=== PATIENT | male | born 1995 | race Caucasian/White ===

== ENCOUNTER 2019-06-23 17:32 | Emergency (ER) | payer OTHER ==
[2019-06-23] MEDS ORDERED: DIPHTH,PERTUSS(ACELL),TET 0.5 ML DISP.SYRIN IM ONE ×2 (17:36→17:46)
--- NOTE | 2019-06-23 17:36 | PDOC ---
Rapid Medical Evaluation Time Seen by Provider: 06/23/19 17:34 Medical Evaluation: 06/23/19 17:34 This patient had a brief in-person evaluation in triage CC: laceration to left 3rd digit 30 minutes ago unknown tetanus status PE: NAD unlabored breathing bandage on 3rd left finger orders:tetanus ordered This patient will proceed to the ED for further evaluation Discharge Disposition - Diagnosis Laceration of finger - Referrals - Patient Instructions - Post Discharge Activity
[2019-06-23 18:18] VITALS: BP 117/67; PULSE 59; TEMP 98.4; BMI 27.3
--- NOTE | 2019-06-23 18:18 | PDOC ---
History of Present Illness - General Chief Complaint: Laceration Stated Complaint: CUT ON LT MIDDLE FINGER Time Seen by Provider: 06/23/19 17:34 History Source: Patient - History of Present Illness Timing/Duration: reports: this evening Location: reports: hands Past History - Past Medical History Allergies/Adverse Reactions: Allergies Allergy/AdvReac Type Severity Reaction Status Date / Time No Known Allergies Allergy Verified 06/23/19 17:37 COPD: No - Suicide/Smoking/Psychosocial Hx Smoking History: Never smoked Information on smoking cessation initiated: No Hx Alcohol Use: No Drug/Substance Use Hx: No Review of Systems - Review of Systems Neurological: No: Numbness, Tingling *Physical Exam - Vital Signs Last Vital Signs Temp Pulse Resp BP Pulse Ox 98.4 F 59 L 18 117/67 100 06/23/19 17:35 06/23/19 17:35 06/23/19 17:35 06/23/19 17:35 06/23/19 17:35 - Physical Exam General Appearance: Yes: Appropriately Dressed. No: Apparent Distress HEENT: positive: Normal Voice Neck: positive: Supple Respiratory/Chest: negative: Respiratory Distress Integumentary: positive: Other (~1cm, curved, superficial lac to fingerpad of L 3rd digit, FROMI, sensation intact) Neurologic: positive: Fully Oriented, Alert, Normal Mood/Affect Procedures - Laceration/Wound Repair Left Finger 3rd digit Wound Length: to 2.5 cm Wound Explored: clean Wound's Depth, Shape: superficial Irrigated w/ Saline: Yes Betadine Prep: Yes Anesthesia: 1% Lidocaine (s/p digitial block and local anesthetic) Amount of Anesthetic (ccs): 8 Wound Repaired With: Sutures Suture Size/Type: 5:0, nylon Number of Sutures: 6 Sterile Dressing Applied: Yes (bacitracic, xeroform, 2x2 and kerlix) Splint Applied: No Medical Decision Making - Medical Decision Making 06/23/19 18:24 23-year-old male, no significant history, 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 No numbness or tingling See exam Finger lac No e/o complication -Tetanus updated -Lac repair -wound check in 48 hrs as needed *DC/Admit/Observation/Transfer Diagnosis at time of Disposition: Laceration of finger Qualifiers: Encounter type: initial encounter Finger: middle finger Damage to nail status: without damage Foreign body presence: without foreign body Laterality: left Qualified Code(s): S61.213A - Laceration without foreign body of left middle finger without damage to nail, initial encounter - Discharge Dispostion Disposition: HOME Condition at time of disposition: Improved - Referrals - Patient Instructions Printed Discharge Instructions: DI for Laceration Repair Additional Instructions: Keep wound dry and dressing in place for at least 24 hours after which wound can be opened to air. You can gently cleaned wound with mild soap and water after 24 hours to prevent crusting over the suture knots. You can also apply an antibiotic ointment twice a day until sutures are removed. Sutures are removed in 7 days Return for wound check in 2 days as needed for signs of infection as discussed - Post Discharge Activity
== END 2019-06-23 18:24 | disposition home or self-care (01) ==
LOC: JERFT 17:32
PROC: 0HQGXZZ Repair Left Hand Skin, External Approach (ICD-10-PCS; principal; 2019-06-23)
DX: S61.213A Laceration without foreign body of left middle finger without damage to nail, initial encounter (principal); W26.0XXA Contact with knife, initial encounter; Y93.89 Activity, other specified; Y92.89 Other specified places as the place of occurrence of the external cause; Y99.0 Civilian activity done for income or pay
CPT/HCPCS: 90715; 99281-25

== ENCOUNTER 2019-06-30 10:30 | Emergency (ER) | payer OTHER ==
[2019-06-30 10:40] VITALS: BP 101/50; PULSE 78; TEMP 98.3; BMI 27.8
--- NOTE | 2019-06-30 11:19 | PDOC ---
Suture Removal/Wound Check HPI - History of Present Illness Chief Complaint: Suture/Staple Removal(Here) Stated Complaint: STITCH REMOVAL Time Seen by Provider: 06/30/19 10:58 History Source: Yes: Patient Exam Limitations: Yes: No Limitations Past History - Past Medical History Allergies/Adverse Reactions: Allergies Allergy/AdvReac Type Severity Reaction Status Date / Time Penicillins Allergy Verified 06/23/19 17:53 Home Medications: Ambulatory Orders NK [No Known Home Medication] 06/30/19 COPD: No - Immunization History Immunization Up to Date: No - Suicide/Smoking/Psychosocial Hx Smoking History: Never smoked Have you smoked in the past 12 months: No Information on smoking cessation initiated: No Hx Alcohol Use: No Drug/Substance Use Hx: No Suture Removal/Wound Check PE - Physical Exam Laceration/Wound Check Symptoms: reports: Improved, Resolved. denies: Pain, Fever, Chills, Redness, Discharge, Bleeding, Worsening Location of Laceration/Wound: left: Finger (L middle finger lac healed) *Physical Exam - Vital Signs Last Vital Signs Temp Pulse Resp BP Pulse Ox 98.3 F 78 18 101/50 L 98 06/30/19 10:38 06/30/19 10:38 06/30/19 10:38 06/30/19 10:38 06/30/19 10:38 Medical Decision Making - Medical Decision Making 23 y/o M presents for suture removal s/p lac repair of L middle finger 1 week ago. Denies fever, swelling, redness, discharge Lac healed well 7 sutures removed 06/30/19 11:18 *DC/Admit/Observation/Transfer Diagnosis at time of Disposition: Visit for suture removal - Discharge Dispostion Disposition: HOME Condition at time of disposition: Stable Decision to Admit order: No - Referrals - Patient Instructions Printed Discharge Instructions: DI for Suture Removal - Post Discharge Activity
== END 2019-06-30 11:20 | disposition home or self-care (01) ==
LOC: JERFT 10:30
DX: Z48.02 Encounter for removal of sutures (principal)
CPT/HCPCS: 99281-25